=== PATIENT | male | born 1975 | race Caucasian/White ===

== ENCOUNTER 2016-05-09 10:26 | Inpatient (IN) | payer SELFPAY ==
[~2016-05-09] VITALS: Ht 175.3 cm; Wt 73.8 kg
[2016-05-09] MEDS ORDERED: SODIUM CHLORIDE 0.9% 1000ML 2,000 ML IV STA (10:42)
[2016-05-09] MEDS ORDERED: ONDANSETRON INJ 2 MG/ML 2 ML VIAL IV STA (10:42)
[2016-05-09] MEDS ORDERED: FAMOTIDINE 20MG/102 ML D5W IV STA (10:54)
[2016-05-09] MEDS ORDERED: PANTOprazole INJ 40 MG in SYRINGE 0 ML IV ONE (11:00)
[2016-05-09 11:01] LABS: BASO % 0.2 %; BASO ABS # 0.02 K/uL (0-0.2); COMPLETE YES; EOS % 0.9 %; IG% 0.2 %; LYMPH % 17.6 %; LYMPH ABS # 1.53 K/uL (1.2-3.4); MEAN CORPUSCULAR HEMOGLOBIN 28.6 pg (25-34); MEAN CORPUSCULAR HGB CONC 32.9 g/dl (32-36); MEAN PLATELET VOLUME 9.8 fL (7.4-10.4); MONO % 4.4 %; NEUT % 76.7 %; PLATELET COUNT 357 K/uL (130-400); RED BLOOD COUNT 4.37 M/uL (4.7-6.1); WHITE BLOOD COUNT 8.69 K/uL (4.8-10.8)
[2016-05-09 11:14] LABS: PARTIAL THROMBOPLASTIN RATIO 0.9; PROTHROMBIN TIME (PATIENT) 10.9 SECONDS (9.0-12.0)
--- NOTE | 2016-05-09 11:20 | EMERGENCY ROOM VISIT NOTE ---
History Report prepared by Abiola: Donis Silverio Under the Supervision of: Dr. Randy Cintron D.O. First contact with patient: 10:36 Chief Complaint: VOMITING Stated Complaint: CAN'T HOLD ANYTHING IN STOMACH DX: DIABETIC Nursing Triage Summary: pt reports is diabetic and vomiting since saturday feels like dehydrated. has bad acid reflux. bilat lower back pain. History of Present Illness The patient is a 40 year old male who presents to the Emergency Room with complaints of intermittent nausea and vomiting starting 5 days ago. He has a history of diabetes. His blood sugar level was 450 last night. He has been taking his aunt's insulin. He also complains of a burning pain in mid-chest. He denies any pain radiation. He also complains of some back pain. He has a history of similar pain. The patient denies any recent falls, abdominal pain, lower extremity swelling, or any other complaints. He denies any recent drug or alcohol use. Source of History: patient Onset: 5 days ago Position: other (global) Quality: other (nausea and vomiting) Timing: intermittent Associated Symptoms: + back pain, + chest pain, No abdominal pain Review of Systems See HPI for pertinent positives & negatives. A total of 10 systems reviewed and were otherwise negative. Past Medical & Surgical Medical Problems: (1) Diabetes (2) Uncontrolled diabetes mellitus Family History Patient reports no known family medical history. Social History Smoking Status: Current Every Day Smoker Marital Status: single Occupation Status: employed Current/Historical Medications Scheduled Insulin Glargine (Lantus), Unknown Dose SC QPM Miscellaneous Medications Insulin Aspart (Novolog Flexpen), Unknown Dose Allergies Coded Allergies: No Known Allergies (Unverified , 05/09/16) Physical Exam Vital Signs Date Time Temp Pulse Resp B/P Pulse Ox O2 Delivery O2 Flow Rate FiO2 05/09/16 13:53 94 05/09/16 13:04 97 23 95 05/09/16 12:58 131/81 05/09/16 12:34 87 15 97 05/09/16 12:28 160/103 05/09/16 12:04 82 16 98 05/09/16 11:59 164/77 05/09/16 11:56 122 18 97 05/09/16 11:52 168/105 05/09/16 11:26 87 15 05/09/16 11:24 90 05/09/16 10:29 36.8 95 18 113/85 99 Room Air Physical Exam GENERAL: Patient is awake, alert, somewhat anxious appearing and uncomfortable. EYES: The conjunctivae are clear. The pupils are round and reactive. EARS, NOSE, MOUTH AND THROAT: The nose is without any evidence of any deformity. Mucous membranes are dry tongue is midline NECK: The neck is nontender and supple. RESPIRATORY: Normal respiratory effort is noted there is no evidence of wheezing rhonchi or rales CARDIOVASCULAR: Regular rate and rhythm noted there no murmurs rubs or gallops normal S1 normal S2 GASTROINTESTINAL: The abdomen is soft but mildly distended. Bowel sounds are present in all quadrants. Abdomen is nontender. There is no specific guarding or rigidity. BACK: Bilateral lower CVA tenderness to palpation, range of motion appeared intact, no midline tenderness noted. MUSCULOSKELETAL/EXTREMITIES: There is no evidence of gross deformity full range of motion is noted in the hips and shoulders SKIN: There is no obvious evidence of any rash. There are no petechiae, pallor or cyanosis noted. NEUROLOGIC: Patient is awake alert and oriented x3 strength is symmetric patellar reflexes are 2+ bilaterally Medical Decision & Procedures ER Provider Diagnostic Interpretation: X ray results and stated below per my interpretation and radiology interpretation. CT results per my review and radiologist interpretation: CT OF THE ABDOMEN AND PELVIS WITHOUT CONTRAST CLINICAL HISTORY: Bilateral flank pain and vomiting. COMPARISON STUDY: KUB performed earlier today. TECHNIQUE: Axial images of the abdomen and pelvis were obtained without IV contrast. Images were reviewed in the axial, sagittal, and coronal planes. FINDINGS: Visualized portions of the lower chest demonstrate a small hiatal hernia with wall thickening of the distal esophagus. No renal, ureteral or bladder calculi are present. There is no hydronephrosis or hydroureter. Mild bladder wall thickening is noted. Evaluation of the remainder of the abdomen and pelvis is suboptimal on this unenhanced exam. A calcification within the medial segment of the left hepatic lobe is noted. There is no biliary or pancreatic ductal dilatation. Unenhanced images of the spleen, adrenal glands and pancreas are unremarkable. There is mild pancreatic glandular atrophy. There is a splenule. There is no evidence for a bowel obstruction. The appendix is normal. There is no free fluid or lymphadenopathy. No suspicious skeletal lesions are identified. Slight loss of height of the superior endplate of L1 is likely chronic. IMPRESSION: 1. No urinary calculi or hydronephrosis. 2. Normal appendix. 3. Mild bladder wall thickening. This could be correlated with urinalysis to exclude cystitis. 4. Small hiatal hernia and possible mild wall thickening of the distal esophagus. 5. No bowel obstruction. Electronically signed by: Cortez Lindquist M.D. 05/09/2016 12:01 PM Dictated Date/Time: 05/09/2016 11:53 AM CHEST ONE VIEW PORTABLE CLINICAL HISTORY: Abdominal pain. COMPARISON STUDY: No previous studies for comparison. FINDINGS: No lucency is identified under the hemidiaphragms to suggest pneumoperitoneum on this exam. Lung volumes are normal. A 1.8 cm nodular opacity projects over the right lower lung. Otherwise, lungs are clear. There is no evidence of pulmonary edema. Cardiac size is normal. Mediastinal contours are normal. IMPRESSION: 1.8 cm nodular opacity projecting over the right lower lung. This could reflect minimal airspace disease, a pulmonary nodule or artifact. Follow-up PA and lateral chest radiographs in one month are recommended. Electronically signed by: Cortez Lindquist M.D. 05/09/2016 11:28 AM Dictated Date/Time: 05/09/2016 11:26 AM KUB CLINICAL HISTORY: Generalized abdominal pain. FINDINGS: AP, portable, supine abdominal radiograph is obtained. No prior studies are available for comparison at the time of dictation. There is a nonobstructed abdominal bowel gas pattern. No calcifications project over either kidney. There is a 7 mm linear calcification identified in the right hemipelvis. The bony structures appear intact. IMPRESSION: 1. Nonobstructed abdominal bowel gas pattern. 2. There is a 7 mm linear calculus projecting over the right hemipelvis. This is indeterminant, and could be related to a vascular structure or could potentially represent a distal ureteral stone. Correlate clinically for a history of right flank pain and hematuria. Consider ultrasound of the kidneys to assess for hydronephrosis. 3. No calcifications project over either kidney. Electronically signed by: Durga Barnes M.D. 05/09/2016 11:28 AM Dictated Date/Time: 05/09/2016 11:26 AM Laboratory Results 05/09/16 10:50 Red Blood Count 4.37, Mean Corpuscular Volume 87.0, Mean Corpuscular Hemoglobin 28.6, Mean Corpuscular Hemoglobin Concent 32.9, Mean Platelet Volume 9.8, Neutrophils (%) (Auto) 76.7, Lymphocytes (%) (Auto) 17.6, Monocytes (%) (Auto) 4.4, Eosinophils (%) (Auto) 0.9, Basophils (%) (Auto) 0.2, Neutrophils # (Auto) 6.66, Lymphocytes # (Auto) 1.53, Monocytes # (Auto) 0.38, Eosinophils # (Auto) 0.08, Basophils # (Auto) 0.02 05/09/16 10:50 Test 05/09/16 10:50 05/09/16 10:52 05/09/16 11:10 05/09/16 12:00 White Blood Count 8.69 K/uL (4.8-10.8) Red Blood Count 4.37 M/uL (4.7-6.1) Hemoglobin 12.5 g/dL (14.0-18.0) Hematocrit 38.0 % (42-52) Mean Corpuscular Volume 87.0 fL (80-100) Mean Corpuscular Hemoglobin 28.6 pg (25-34) Mean Corpuscular Hemoglobin Concent 32.9 g/dl (32-36) Platelet Count 357 K/uL (130-400) Mean Platelet Volume 9.8 fL (7.4-10.4) Neutrophils (%) (Auto) 76.7 % Lymphocytes (%) (Auto) 17.6 % Monocytes (%) (Auto) 4.4 % Eosinophils (%) (Auto) 0.9 % Basophils (%) (Auto) 0.2 % Neutrophils # (Auto) 6.66 K/uL (1.4-6.5) Lymphocytes # (Auto) 1.53 K/uL (1.2-3.4) Monocytes # (Auto) 0.38 K/uL (0.11-0.59) Eosinophils # (Auto) 0.08 K/uL (0-0.5) Basophils # (Auto) 0.02 K/uL (0-0.2) RDW Standard Deviation 40.9 fL (36.4-46.3) RDW Coefficient of Variation 12.8 % (11.5-14.5) Immature Granulocyte % (Auto) 0.2 % Immature Granulocyte # (Auto) 0.02 K/uL (0.00-0.02) Prothrombin Time 10.9 SECONDS (9.0-12.0) Prothromb Time International Ratio 1.0 (0.9-1.1) Activated Partial Thromboplast Time 24.0 SECONDS (21.0-31.0) Partial Thromboplastin Ratio 0.9 Anion Gap 10.0 mmol/L (3-11) Est Creatinine Clear Calc Drug Dose 60.8 ml/min Estimated GFR () 61.1 Estimated GFR (Non- 52.7 BUN/Creatinine Ratio 16.4 (10-20) Estimated Average Glucose 214 mg/dl Hemoglobin A1c 9.1 % (4.5-5.6) Calcium Level 9.7 mg/dl (8.5-10.1) Total Bilirubin 0.6 mg/dl (0.2-1) Direct Bilirubin 0.1 mg/dl (0-0.2) Aspartate Amino Transf (AST/SGOT) 31 U/L (15-37) Alanine Aminotransferase (ALT/SGPT) 24 U/L (12-78) Alkaline Phosphatase 55 U/L (45-117) Total Creatine Kinase 613 U/L (39-308) Creatine Kinase MB 5.8 ng/ml (0.5-3.6) Creatine Kinase MB Ratio 0.9 (0-3.0) Troponin I < 0.015 ng/ml (0-0.045) Total Protein 8.2 gm/dl (6.4-8.2) Albumin 3.9 gm/dl (3.4-5.0) Amylase Level 59 U/L (25-115) Lipase 129 U/L (73-393) Beta-Hydroxybutyric Acid 6.85 mg/dL (0.2-2.81) Bedside Lactic Acid Venous 2.00 mmol/L (0.90-1.70) Venous Blood pH 7.46 (7.36-7.41) Venous Blood Partial Pressure CO2 51 mmHg (38.0-50.0) Venous Blood Partial Pressure O2 50 mmHg Venous Blood HCO3 35 mmol/L Venous Blood Oxygen Saturation 84.3 % Venous Blood Base Excess 10.0 mmol/L Urine Color YELLOW Urine Appearance CLEAR (CLEAR) Urine pH 7.5 (4.5-7.5) Urine Specific Dennison 1.018 (1.000-1.030) Urine Protein 2+ (NEG) Urine Glucose (UA) 2+ (NEG) Urine Ketones TRACE (NEG) Urine Occult Blood NEG (NEG) Urine Nitrite NEG (NEG) Urine Bilirubin NEG (NEG) Urine Urobilinogen NEG (NEG) Urine Leukocyte Esterase NEG (NEG) Urine WBC (Auto) 1-5 /hpf (0-5) Urine RBC (Auto) 0-4 /hpf (0-4) Urine Hyaline Casts (Auto) 5-10 /lpf (0-5) Urine Epithelial Cells (Auto) 10-20 /lpf (0-5) Urine Bacteria (Auto) NEG (NEG) Laboratory results per my review. Medications Administered Medications (Trade) Dose Ordered Sig/Jeronimo Route Start Time Stop Time Status Last Admin Dose Admin Ondansetron HCl 4 mg 4 mg NOW STAT IV 05/09/16 10:42 05/09/16 10:44 DC 05/09/16 11:13 4 MG Sodium Chloride 2,000 ml @ 999 mls/hr Q2H1M STAT IV 05/09/16 10:42 05/09/16 12:42 DC 05/09/16 11:12 999 MLS/HR Pantoprazole Sodium/Syringe (Protonix Inj/ Syringe) 10 ml @ 5 mls/min NOW ONCE IV 05/09/16 11:00 05/09/16 11:01 DC 05/09/16 11:55 5 MLS/MIN Famotidine (Pepcid 20mg/100 ml) 20 mg ONE STAT IV 05/09/16 10:54 05/09/16 10:56 DC 05/09/16 11:14 20 MG Levofloxacin (Levaquin / D5W) 750 mg NOW STAT IV 05/09/16 13:30 05/09/16 13:31 DC 05/09/16 13:53 750 MG Acetaminophen (Tylenol Tab) 650 mg Q4H PRN PO 05/09/16 14:45 06/08/16 14:44 05/09/16 17:58 650 MG Ondansetron HCl (Zofran Inj) 4 mg Q6H PRN IV 05/09/16 14:45 06/08/16 14:44 05/09/16 15:33 4 MG ECG Indication: chest pain Rate (beats per minute): 87 Rhythm: normal sinus Findings: no ectopy, other (No acute ST segment abnormalities) Comparison ECG Date: no prior available ED Course 1036: The patient was evaluated in room C04. A complete history and physical examination were performed. 1042: Sodium Chloride 2000 ml @ 999 mls/hr IV, Zofran Inj 4 mg IV 1054: Famotidine 20 mg IV 1100: Pantoprazole Sodium 40 mg/Syringe 10 ml @ 5 mls/min IV 1330: Levofloxacin 750 mg IV 1351: Upon reevaluation, the patient is resting comfortably. I discussed results and treatment plan with him. He verbalizes agreement and understanding. [facility] The patient will be evaluated for further management and care. Medical Decision Prior records/ancillary studies reviewed. Triage Nursing notes reviewed. Additional history obtained from the family. Differential diagnosis: Etiologies such as gastroenteritis, food borne illness, infections, appendicitis , diverticulitis, inflammatory bowel disease, obstruction, GI bleed, biliary pathology, as well as others were entertained. The patient is a 40-year-old male who presented to the emergency apartment for an evaluation of nausea and vomiting. The patient is a history of diabetes and is not compliant with medications. He was found have hyperglycemia. He was treated with IV fluids IV antiemetics as well as proton pump inhibitors and H2 blockers. The patient was also treated with IV antibiotics for presumed pneumonia noted on chest x-ray. I discussed the patient's laboratory and radiographic studies with him. He was not feeling much better and was still unable to tolerate liquids. This reason I discussed his case with the on-call [facility] group. They have agreed to evaluate the patient in the emergency department for further management and disposition. Consults Time Called: 1350 Consulting Physician: [facility] Returned Call: [address] [facility]. Impression Primary Impression: Dehydration Additional Impressions: Intractable vomiting Pneumonia Hyperglycemia Scribe Attestation The scribe's documentation has been prepared under my direction and personally reviewed by me in its entirety. I confirm that the note above accurately reflects all work, treatment, procedures, and medical decision making performed by me. Departure Information Dispostion Being Evaluated By Hospitalist Referrals No Doctor, Assigned (PCP) Patient Instructions My [facility] Problem Qualifiers
[2016-05-09] MEDS ORDERED: NVLGI/PEN (11:22)
[2016-05-09] MEDS ORDERED: INSDGI SC (11:22)
[2016-05-09 11:25] LABS: VEN BLD GAS O2 SATURATION 84.3 %
[2016-05-09 11:29] LABS: ALT/SGPT 24 U/L (12-78); AST/SGOT 31 U/L (15-37); BLOOD UREA NITROGEN 26 mg/dl (7-18); BUN/CREATININE RATIO 16.4 (10-20); CALCIUM 9.7 mg/dl (8.5-10.1); CARBON DIOXIDE 33 mmol/L (21-32); CHLORIDE 97 mmol/L (98-107); GLUCOSE 261 mg/dl (70-99); POTASSIUM 3.9 mmol/L (3.5-5.1); SODIUM 140 mmol/L (136-145)
--- NOTE | 2016-05-09 11:29 | DIAGNOSTIC IMAGING REPORT ---
CHEST ONE VIEW PORTABLE CLINICAL HISTORY: Abdominal pain. COMPARISON STUDY: No previous studies for comparison. FINDINGS: No lucency is identified under the hemidiaphragms to suggest pneumoperitoneum on this exam. Lung volumes are normal. A 1.8 cm nodular opacity projects over the right lower lung. Otherwise, lungs are clear. There is no evidence of pulmonary edema. Cardiac size is normal. Mediastinal contours are normal. IMPRESSION: 1.8 cm nodular opacity projecting over the right lower lung. This could reflect minimal airspace disease, a pulmonary nodule or artifact. Follow-up PA and lateral chest radiographs in one month are recommended. Electronically signed by: Cortez Lindquist M.D. 05/09/2016 11:28 AM Dictated Date/Time: 05/09/2016 11:26 AM
--- NOTE | 2016-05-09 11:30 | DIAGNOSTIC IMAGING REPORT ---
KUB CLINICAL HISTORY: Generalized abdominal pain. FINDINGS: AP, portable, supine abdominal radiograph is obtained. No prior studies are available for comparison at the time of dictation. There is a nonobstructed abdominal bowel gas pattern. No calcifications project over either kidney. There is a 7 mm linear calcification identified in the right hemipelvis. The bony structures appear intact. IMPRESSION: 1. Nonobstructed abdominal bowel gas pattern. 2. There is a 7 mm linear calculus projecting over the right hemipelvis. This is indeterminant, and could be related to a vascular structure or could potentially represent a distal ureteral stone. Correlate clinically for a history of right flank pain and hematuria. Consider ultrasound of the kidneys to assess for hydronephrosis. 3. No calcifications project over either kidney. Electronically signed by: Durga Barnes M.D. 05/09/2016 11:28 AM Dictated Date/Time: 05/09/2016 11:26 AM
[2016-05-09 11:35] LABS: ALKALINE PHOSPHATASE 55 U/L (45-117); AMYLASE 59 U/L (25-115); CKMB/CK RATIO 0.9 (0-3.0)
--- NOTE | 2016-05-09 12:02 | DIAGNOSTIC IMAGING REPORT ---
CT OF THE ABDOMEN AND PELVIS WITHOUT CONTRAST CLINICAL HISTORY: Bilateral flank pain and vomiting. COMPARISON STUDY: KUB performed earlier today. TECHNIQUE: Axial images of the abdomen and pelvis were obtained without IV contrast. Images were reviewed in the axial, sagittal, and coronal planes. FINDINGS: Visualized portions of the lower chest demonstrate a small hiatal hernia with wall thickening of the distal esophagus. No renal, ureteral or bladder calculi are present. There is no hydronephrosis or hydroureter. Mild bladder wall thickening is noted. Evaluation of the remainder of the abdomen and pelvis is suboptimal on this unenhanced exam. A calcification within the medial segment of the left hepatic lobe is noted. There is no biliary or pancreatic ductal dilatation. Unenhanced images of the spleen, adrenal glands and pancreas are unremarkable. There is mild pancreatic glandular atrophy. There is a splenule. There is no evidence for a bowel obstruction. The appendix is normal. There is no free fluid or lymphadenopathy. No suspicious skeletal lesions are identified. Slight loss of height of the superior endplate of L1 is likely chronic. IMPRESSION: 1. No urinary calculi or hydronephrosis. 2. Normal appendix. 3. Mild bladder wall thickening. This could be correlated with urinalysis to exclude cystitis. 4. Small hiatal hernia and possible mild wall thickening of the distal esophagus. 5. No bowel obstruction. Electronically signed by: Cortez Lindquist M.D. 05/09/2016 12:01 PM Dictated Date/Time: 05/09/2016 11:53 AM
[2016-05-09 12:14] LABS: ESTIMATED AVERAGE GLUCOSE 214 mg/dl; HA1C FLAG Normal (Normal)
[2016-05-09 12:19] LABS: URINE APPEARANCE CLEAR (CLEAR); URINE BILIRUBIN NEG (NEG); URINE COLOR YELLOW; URINE NITRITE NEG (NEG); URINE PH 7.5 (4.5-7.5); URINE SPECIFIC GRAVITY 1.018 (1.000-1.030); UROBILINOGEN NEG (NEG)
[2016-05-09 12:28] LABS: MANUAL MICROSCOPIC REQUIRED? NO; REVIEW REQ? NO; SULFASALICYLIC ACID POS (NEG)
[2016-05-09] MEDS ORDERED: LEVAQUIN 750MG / 150ML D5W IV STA (13:30)
[2016-05-09] MEDS ORDERED: ACETAMINOPHEN 325 MG TAB PO PRN (14:45)
[2016-05-09] MEDS ORDERED: INSULIN GLARGINE PER UNIT 10 UNITS in SYRINGE 0 ML SC SCH (14:45)
[2016-05-09] MEDS ORDERED: ALUMINUM/MAGNESIUM/SIMETH (MAALOX MAX) 30 ML UDC PO PRN (14:45)
[2016-05-09] MEDS ORDERED: MAGNESIUM HYDROXIDE SUSP 30 ML UDC PO PRN (14:45)
[2016-05-09] MEDS ORDERED: POLYETHYLENE (MIRALAX) 17 GM PACK PO PRN (14:45)
[2016-05-09] MEDS: ONDANSETRON INJ 2 MG/ML 2 ML VIAL IV PRN (15:33)
--- NOTE | 2016-05-09 15:46 | HISTORY & PHYSICAL EXAMINATION ---
DATE OF ADMISSION: 05/09/2016 CHIEF COMPLAINT: Increased glucose, nausea. HISTORY OF PRESENT ILLNESS: This is a 40-year-old male comes to Emergency Room complaining of intermittent nausea and vomiting started 5 days ago. He also had associated cough. His blood sugar was 450 last night and he has not been taking his insulin because he could not afford it due to insurance issues. Also complains of burning pain in the mid chest. He denies any radiation of his pain. He denies any recent falls, abdominal pain, lower extremity swelling or any other complaints. Does not use drugs or alcohol. According to him 6 years ago he was diagnosed with type 1 diabetes and he received IV insulin in hospital in [place]. 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 In the last 6 years he has been taking sliding scale NovoLog that starts at 200 mg per deciliter and goes by 2 units above this level starting with 4 units by each increment of 50 mg per deciliter. He takes Lantus 10-18 units at bedtime and uses his insulin. He checks his sugars according to him 3 times a day but he was only able to provide me glucose reading for lunch and dinner. Lunch is about 300-400 and for dinner 200-300. He could not afford any insulin due to insurance issues. He did say that 3-4 weeks ago he had insulin and was in the 40s and 50s because he took insulin and did not each much. He did not see director immunology, eye doctor, sinter machine operator or dentist. He does not know his last hemoglobin A1c. He eats 3 meals a day. REVIEW OF SYSTEMS: Negative except as above. Ten out of 14 systems were reviewed. PAST MEDICAL HISTORY: Significant for type 1 diabetes, however it is not confirmed. SOCIAL HISTORY: Smokes half a pack a day, does not drink, single, employed. ALLERGIES: He has no known allergies. CURRENT MEDICATIONS: He also takes NovoLog sliding scale and Lantus 10-18 units at bedtime. PHYSICAL EXAMINATION: VITAL SIGNS: Temperature 36.8, pulse 95, respirations 18, blood pressure 113/85, pulse ox 99 on room air. GENERAL: Not in acute distress. HEAD, EYES, EARS, NOSE, AND THROAT: Normocephalic, atraumatic. PERRLA, EOMI. Mouth moist, no lesions. NECK: No JVD. Trachea midline. Thyroid is not enlarged. LUNGS: Normal respiratory effort. No wheezing. HEART: S1, S2, RRR. GASTROINTESTINAL: Abdomen soft, but mildly distended. Bowel sounds present in all quadrants. Abdomen is nontender. There is no specific guarding or rigidity. BACK: Bilateral CVA tenderness to palpation. MUSCULOSKELETAL: Extremities no clubbing, cyanosis, edema. SKIN: No rash. No jaundice. NEUROLOGICAL: Alert, oriented x3. Motor sensory normal. EK beats per minute, normal sinus rhythm, no ST-T wave changes. LABORATORY DATA: White count of 8.6, hemoglobin of 12.5, and platelets of 357. Blood gas pH of 7.46, CO2 of 51 and bicarbonate of 35. His hemoglobin A1c of 9.1. Sodium 140, potassium 3.9, chloride 97, carbon dioxide 33, BUN of 26, creatinine 1.6 and glucose of 261. Total creatine kinase is 613, CK-MB of 5.8. Troponin less than 0.015, but hydroxybutyric acid is 6.85. Urinalysis trace ketones, 5-10 casts and 10-20 epithelial cells. INR 1.0. PTT 24. Imaging study of abdomen and pelvis CT no urinary calculus or hydronephrosis, normal appendix, mild bladder wall thickening correlated with urinalysis to exclude cystitis, small hiatal hernia and possible mild wall thickening of the distal esophagus. No bowel obstruction. Chest x-ray 1.8 cm nodular opacity projecting over the right lower lung. This could reflect minimal airspace disease, pulmonary nodule or artifact. KUB nonobstructed abdominal bowel gas patten, 7 mm renal calculus projecting over the right hemipelvis. This is indeterminate, could be related to stricture, could potentially represent a distal ureter stone. No calcifications project over either kidney. CAT scan did not show any urinary calculi or hydronephrosis. ASSESSMENT AND PLAN: This is a 40-year-old male who comes with uncontrolled hyperglycemia. 1. Uncontrolled hyperglycemia. Doubt type 1 diabetes. Could be type 2 diabetes or JEET, however further outpatient testing is required. His hemoglobin A1c is 9.1. He requires insulin injection. We will give him 6-8 units of regular insulin subQ, followed by 10 units of Lantus twice a day. The patient does not have insurance and therefore he will be a candidate for NovoLog 70/30 twice a day. Dose will be determined according to response to current dose of insulin. This episode could have been precipitated by gastroenteritis or mild bronchial pneumonia or bronchitis. He also mentioned of mild bladder wall thickening could represent cystitis on his CAT scan. Recheck BMP and beta hydroxybutyric acid at 7:00 p.m. tonight. Consult elementary educator. 2. Acute renal failure likely secondary to dehydration in the setting of possible cystitis or gastroenteritis. We will start patient on normal saline with 20 mEq of potassium and Levaquin 750 daily. 3. Nicotine addiction. Start nicotine 14 mg patch. 4. Dehydration. Continue IV fluids. 5. Deep venous thrombosis and gastrointestinal prophylaxis. THE PATIENT IS A FULL CODE. Time spent doing this admission 50 minutes. JABARID
[2016-05-09 16:08] VITALS: O2SAT 99; BMI 24.0
[2016-05-09] MEDS ORDERED: INSULIN HUMAN REGULAR SC ONE (16:45)
[2016-05-09] MEDS ORDERED: NovoLIN-R INSULIN PER UNIT CHARGE SQ ONE (17:00)
[2016-05-09 17:30] VITALS: BP 147/85; PULSE 91; TEMP 36.8; O2SAT 95
[2016-05-09] MEDS: NSS + 20MEQ KCL 1000ML 1,000 ML IV SCH (17:58)
[2016-05-09] MEDS ORDERED: TRAMADOL HCL 50 MG TAB PO STA (19:43)
[2016-05-09 19:46] LABS: BUN/CREATININE RATIO 16.2 (10-20); CALCIUM 8.4 mg/dl (8.5-10.1); CREATININE 1.2 mg/dl (0.60-1.40); POTASSIUM 3.8 mmol/L (3.5-5.1)
[2016-05-09 19:47] LABS: BETA-HYDROXYBUTYRATE 1.07 mg/dL (0.2-2.81)
[2016-05-09] MEDS ORDERED: TRAMADOL HCL 50 MG TAB ONE (19:47)
[2016-05-09] MEDS: INSULIN ASPART 100 UNITS/ML 3 ML PEN SC SCH (20:40)
[2016-05-09] MEDS: INSULIN GLARGINE SOLOSTAR 100 UNITS/ML 3 ML PEN SC SCH (20:41)
[2016-05-09] MEDS ORDERED: MoRPHine SULFATE 4 MG/ML 1 ML CARP\\VIAL IV STA (22:21)
[2016-05-09] MEDS: DICLOFENAC SOD 1% GEL 100 GM TUBE EXT SCH (23:38)
[2016-05-10 00:53] VITALS: BP 101/66; PULSE 82; TEMP 36.6; O2SAT 97
[2016-05-10] MEDS: NSS + 20MEQ KCL 1000ML 1,000 ML IV SCH ×2 (03:08→13:53)
[2016-05-10] MEDS: INSULIN ASPART 100 UNITS/ML 3 ML PEN SC SCH (06:30)
[2016-05-10 07:07] VITALS: BP 108/70; PULSE 73; TEMP 36.6; O2SAT 96
[2016-05-10 07:52] LABS: BASO % 0.3 %; BASO ABS # 0.02 K/uL (0-0.2); COMPLETE YES; EOS % 1.9 %; HEMATOCRIT 33.9 % (42-52); IG% 0.2 %; LYMPH % 30.5 %; LYMPH ABS # 1.96 K/uL (1.2-3.4); MEAN CELL VOLUME 87.8 fL (80-100); MEAN CORPUSCULAR HEMOGLOBIN 28.2 pg (25-34); MEAN CORPUSCULAR HGB CONC 32.2 g/dl (32-36); MEAN PLATELET VOLUME 10.1 fL (7.4-10.4); NEUT % 60.1 %; PLATELET COUNT 312 K/uL (130-400); RED BLOOD COUNT 3.86 M/uL (4.7-6.1); WHITE BLOOD COUNT 6.43 K/uL (4.8-10.8)
[2016-05-10 08:00] VITALS: O2SAT 96
[2016-05-10] MEDS: INSULIN GLARGINE SOLOSTAR 100 UNITS/ML 3 ML PEN SC SCH (08:00)
[2016-05-10] MEDS ORDERED: NICOTINE 14 MG/24 HR TDSY TD SCH (08:00)
[2016-05-10 08:22] LABS: BUN/CREATININE RATIO 14.4 (10-20); CALCIUM 8.2 mg/dl (8.5-10.1); CREATININE 1.1 mg/dl (0.60-1.40); POTASSIUM 3.5 mmol/L (3.5-5.1)
[2016-05-10] MEDS ORDERED: DEXTROSE 50% 50 ML SYR ONE (08:24)
[2016-05-10] MEDS ORDERED: DEXTROSE 50% 50 ML SYR IV PRN ×2 (08:30)
[2016-05-10] MEDS ORDERED: GLUCOSE 10 TABS/TUBE PO PRN (08:30)
[2016-05-10] MEDS ORDERED: GLUCAGON FOR INJ 1 MG VIAL SQ PRN (08:30)
[2016-05-10] MEDS ORDERED: GLUCOSE 40% GEL 15 GM TUBE PO PRN (08:30)
[2016-05-10] MEDS: ONDANSETRON INJ 2 MG/ML 2 ML VIAL IV PRN (08:33)
[2016-05-10] MEDS: DICLOFENAC SOD 1% GEL 100 GM TUBE EXT SCH (08:34)
[2016-05-10] MEDS ORDERED: PHARMACY GLYCEMIC MGMT CONSULT PRN (08:45)
--- NOTE | 2016-05-10 10:58 | Pharmacy Progress Note ---
Glycemic Control Intl Consult Date of Service May 10, 2016. Scope Glycemic Pharmacist consulted by Sheri Clay PA-C on 05/10/16 for glycemic control and to write orders per [facility] inpatient glycemic control protocol Objective Weight (Kilograms): 73.800 Accuchecks BSG (last 24hrs): Test 05/09/16 10:50 05/09/16 10:55 05/09/16 13:01 05/09/16 16:47 Random Glucose 261 mg/dl (70-99) Bedside Glucose 248 mg/dl (70-99) 228 mg/dl (70-99) 186 mg/dl (70-99) Test 05/09/16 17:15 05/09/16 19:10 05/09/16 20:38 05/10/16 06:55 Bedside Glucose 202 mg/dl (70-99) 113 mg/dl (70-99) Random Glucose 147 mg/dl (70-99) 61 mg/dl (70-99) Test 05/10/16 07:41 05/10/16 08:05 05/10/16 08:47 Bedside Glucose 67 mg/dl (70-99) 60 mg/dl (70-99) 236 mg/dl (70-99) Laboratory Data (last 24hrs) Test 05/09/16 10:50 05/09/16 19:10 05/10/16 06:55 Anion Gap 10.0 mmol/L 7.0 mmol/L 9.0 mmol/L BUN/Creatinine Ratio 16.4 16.2 14.4 Blood Urea Nitrogen 26 mg/dl 19 mg/dl 16 mg/dl Creatinine 1.60 mg/dl 1.20 mg/dl 1.10 mg/dl Hemoglobin A1c 9.1 % Potassium Level 3.9 mmol/L 3.8 mmol/L 3.5 mmol/L Sodium Level 140 mmol/L 141 mmol/L 141 mmol/L White Blood Count 8.69 K/uL 6.43 K/uL Red Blood Count 4.37 M/uL 3.86 M/uL Hemoglobin 12.5 g/dL 10.9 g/dL Hematocrit 38.0 % 33.9 % Mean Corpuscular Volume 87.0 fL 87.8 fL Mean Corpuscular Hemoglobin 28.6 pg 28.2 pg Mean Corpuscular Hemoglobin Concent 32.9 g/dl 32.2 g/dl Platelet Count 357 K/uL 312 K/uL Mean Platelet Volume 9.8 fL 10.1 fL Neutrophils (%) (Auto) 76.7 % 60.1 % Lymphocytes (%) (Auto) 17.6 % 30.5 % Monocytes (%) (Auto) 4.4 % 7.0 % Eosinophils (%) (Auto) 0.9 % 1.9 % Basophils (%) (Auto) 0.2 % 0.3 % Neutrophils # (Auto) 6.66 K/uL 3.87 K/uL Lymphocytes # (Auto) 1.53 K/uL 1.96 K/uL Monocytes # (Auto) 0.38 K/uL 0.45 K/uL Eosinophils # (Auto) 0.08 K/uL 0.12 K/uL Basophils # (Auto) 0.02 K/uL 0.02 K/uL HbA1c Test 05/09/16 10:50 Hemoglobin A1c 9.1 % (4.5-5.6) H Recent Pertinent Medications Outpatient Anti-diabetic Regimen: * When patient is able to take his insulin, this is his regimen, although patient reports hypoglycemia when on this regimen: * Lantus 10-18 units SQ HS * Novolog SS, for BSG > 200mg/dL - 4 units; >250mg/dL - 6 units; > 300mg/dL - 8 units, >350mg/dL - 10 units * A1c = 9.1 % 05/10/16 The patient is currently receiving: * Basal insulin: Lantus 10 units every 12 hours - pt had one dose last night * Novolin R: 6 units SQ x 2 dose last night Risk Factors for Insulin Resistance: * Infection: possible pneumonia - IV Levaquin * Diet: Clears Assessment & Plan ASSESSMENT: * 40 yo admitted for nausea/emesis, hyperglycemia, possible pneumonia. * Type 1 vs type 2 vs JEET diabetic, x 6 years. Non-compliant as outpatient, uninsured. Patient reports hypoglycemia with insulin doses reported above. Patient also experienced hypoglycemia this morning with a total of 16 units of insulin last night. * BSG 60mg/dL - treated with dextrose IV - repeat 236mg/dL. * Patient already given Lantus and Novolog pens for admission, so I will continue to use these, patient will need dosing regimen for Novolin 70/30 as outpatient to give patient a more affordable option for compliance. * I will hold patient's Lantus until tomorrow morning and reduce dose. * Accuchecks overnight while titrating insulin doses. * Will start with a pretty loose CF and CR and titrate as we see how patient responds to carb intake. * ADA & AACE recommend a goal blood sugar range 140-180 mg/dl for the majority of critically ill & non-critically ill patients. However, more stringent targets may be selected in individual cases. For patient's age and DM history and hypoglycemic episodes, will start with range of 120-160mg/dL. PLAN FOR INPATIENT GLYCEMIC CONTROL: * Basal insulin with LANTUS 6 units SQ daily starting tomorrow morning * HOLD for BSG < 120mg/dL * Correctional Insulin with NOVOLOG per scale ACHS or Q6hrs while NPO and at 00: 00 and 04:00 overnight * Goal Range: Low 120 mg/dL - High 160 mg/dL * Correction Factor: 40 mg/dL/unit * Nutritional / Prandial insulin per carb ratio of 1 unit per 20 grams CHO consumed DISCHARGE RECOMMENDATIONS: * Relion ([employer] brand) Novolin 70/30 - dosing recommendations after patient has had 24-48 hours of insulin as inpatient to determine needs. * Please note that the plan above was derived based on current level of insulin resistance and hospital stress. These recommendations are appropriate for inpatient admission only. Plan of care upon discharge will need to be reassessed to avoid potential outpatient hypo/hyperglycemia. Thank you.
[2016-05-10] MEDS ORDERED: TRAMADOL HCL 50 MG TAB PO PRN (11:00)
--- NOTE | 2016-05-10 11:34 | Hospitalist Progress Note ---
Hospitalist Progress Note Date of Service May 10, 2016. Subjective Pt evaluation today including: conversation w/ patient, physical exam, chart review, lab review, review of studies, review of inpatient medication list Patient reports feeling better this morning. He was able to keep orange juice down. He is also sipping water. He is ready to eat and is hungry. Denies any abdominal pain. Denies any chest pain or shortness of breath. complaining of a mild cough. No fever or chills. Additional Comments: 6 system review negative. Please see pertinent positives in the history of present illness section. Objective Vital Signs Date Time Temp Pulse Resp B/P Pulse Ox O2 Delivery O2 Flow Rate FiO2 05/10/16 08:00 96 Room Air 05/10/16 07:07 36.6 73 20 108/70 96 Room Air 05/10/16 00:53 36.6 82 18 101/66 97 Room Air 05/10/16 00:00 Room Air 05/09/16 17:30 36.8 91 16 147/85 95 Room Air 05/09/16 16:54 36.8 94 18 139/85 99 05/09/16 16:52 94 18 139/85 99 05/09/16 16:28 157/106 05/09/16 16:20 99 22 99 05/09/16 16:08 99 Room Air 05/09/16 15:58 144/101 05/09/16 15:50 85 14 95 05/09/16 15:28 150/95 05/09/16 15:20 102 13 94 05/09/16 15:15 95 16 99 05/09/16 15:10 96 17 97 05/09/16 15:05 94 17 97 05/09/16 15:00 98 22 97 05/09/16 13:53 94 05/09/16 13:04 97 23 95 05/09/16 12:58 131/81 05/09/16 12:34 87 15 97 05/09/16 12:28 160/103 05/09/16 12:04 82 16 98 05/09/16 11:59 164/77 05/09/16 11:56 122 18 97 05/09/16 11:52 168/105 05/09/16 11:26 87 15 05/09/16 11:24 90 Physical Exam General Appearance: no apparent distress Neck: no JVD Respiratory/Chest: + pertinent finding (few coarse breath sounds bilaterally. No crackles. Good aeration at the bases. No tachypnea. No hypoxia.) Cardiovascular: regular rate, rhythm Abdomen: normal bowel sounds, non tender, soft Extremities: non-tender, no pedal edema Neurologic/Psychiatric: no motor/sensory deficits, oriented x 3 Skin: warm/dry Laboratory Results Last 24 Hours Test 05/09/16 11:10 05/09/16 12:00 05/09/16 13:01 05/09/16 16:47 Venous Blood pH 7.46 Venous Blood Partial Pressure CO2 51 mmHg Venous Blood Partial Pressure O2 50 mmHg Venous Blood HCO3 35 mmol/L Venous Blood Oxygen Saturation 84.3 % Venous Blood Base Excess 10.0 mmol/L Urine Color YELLOW Urine Appearance CLEAR Urine pH 7.5 Urine Specific [place] 1.018 Urine Protein 2+ Urine Glucose (UA) 2+ Urine Ketones TRACE Urine Occult Blood NEG Urine Nitrite NEG Urine Bilirubin NEG Urine Urobilinogen NEG Urine Leukocyte Esterase NEG Urine WBC (Auto) 1-5 /hpf Urine RBC (Auto) 0-4 /hpf Urine Hyaline Casts (Auto) 5-10 /lpf Urine Epithelial Cells (Auto) 10-20 /lpf Urine Bacteria (Auto) NEG Bedside Glucose 228 mg/dl 186 mg/dl Test 05/09/16 17:15 05/09/16 19:10 05/09/16 20:38 05/10/16 06:55 Bedside Glucose 202 mg/dl 113 mg/dl Sodium Level 141 mmol/L 141 mmol/L Potassium Level 3.8 mmol/L 3.5 mmol/L Chloride Level 102 mmol/L 104 mmol/L Carbon Dioxide Level 32 mmol/L 28 mmol/L Anion Gap 7.0 mmol/L 9.0 mmol/L Blood Urea Nitrogen 19 mg/dl 16 mg/dl Creatinine 1.20 mg/dl 1.10 mg/dl Est Creatinine Clear Calc Drug Dose 81.0 ml/min 88.4 ml/min Estimated GFR () 86.5 96.1 Estimated GFR (Non- 74.7 82.9 BUN/Creatinine Ratio 16.2 14.4 Random Glucose 147 mg/dl 61 mg/dl Calcium Level 8.4 mg/dl 8.2 mg/dl Beta-Hydroxybutyric Acid 1.07 mg/dL White Blood Count 6.43 K/uL Red Blood Count 3.86 M/uL Hemoglobin 10.9 g/dL Hematocrit 33.9 % Mean Corpuscular Volume 87.8 fL Mean Corpuscular Hemoglobin 28.2 pg Mean Corpuscular Hemoglobin Concent 32.2 g/dl Platelet Count 312 K/uL Mean Platelet Volume 10.1 fL Neutrophils (%) (Auto) 60.1 % Lymphocytes (%) (Auto) 30.5 % Monocytes (%) (Auto) 7.0 % Eosinophils (%) (Auto) 1.9 % Basophils (%) (Auto) 0.3 % Neutrophils # (Auto) 3.87 K/uL Lymphocytes # (Auto) 1.96 K/uL Monocytes # (Auto) 0.45 K/uL Eosinophils # (Auto) 0.12 K/uL Basophils # (Auto) 0.02 K/uL RDW Standard Deviation 41.1 fL RDW Coefficient of Variation 12.8 % Immature Granulocyte % (Auto) 0.2 % Immature Granulocyte # (Auto) 0.01 K/uL Test 05/10/16 07:41 05/10/16 08:05 05/10/16 08:47 Bedside Glucose 67 mg/dl 60 mg/dl 236 mg/dl Assessment and Plan 40-year-old male presented to the emergency department with nausea, vomiting and hyperglycemia. History of type 1 diabetes. Unfortunately, the gentleman does not have insurance and is unable to afford his insulin. He has been intermittently taking his aunt's Novolog. The patient reports having NovoLog with him. He ran out of his Lantus. Type 1 diabetes. Admitted with hyperglycemia. Mild hypoglycemic episode this morning. No signs of DKA -Received 10 units of Lantus last night. In addition, received 2 doses of Novolin 6 units subcutaneously last night. -Pharmacy glycemic consult placed -Hold basal insulin this morning. Recommendation is to start Lantus 6 units daily. Start tomorrow. -Patient will likely need Novolin 70/30 (due to affordability) upon discharge -Pharmacy following -Insulin sliding scale: Goal Range: Low 120 mg/dL - High 160 mg/dL Correction Factor: 40 mg/dL/unit Carb ratio of 1 unit per 20 grams CHO consumed Acute bronchitis -Continue Levaquin 750 mg IV for 1 more day -If patient tolerating a diet, this will be switched to po tomorrow Nausea vomiting-possibly secondary to hyperglycemia vs viral gastroenteritis. Resolving. No diarrhea. No abdominal pain. -Advance diet today -Continue Zofran 4 mg IV every 6 hours if needed Acute renal failure secondary to dehydration in the setting of hyperglycemia- resolving with fluids -Continue IVF-->will d/c if tolerating a diet later today Acute on chronic back pain-no injuries -Ultram 50 mg 1 -Continue Voltaren gel Pulmonary nodule -Patient will need repeat chest x-ray PA and lateral in 6 months DVT prophylaxis -Ambulation -Teds, SCDs CODE STATUS -LEVEL I FULL CODE
[2016-05-10 13:58] VITALS: Ht 175.3 cm; Wt 73.8 kg
[2016-05-10] MEDS ORDERED: LEVOFLOXACIN / D5W 750 MG in PREMIXED IN D5W 150 ML IV SCH (14:00)
[2016-05-10] MEDS ORDERED: INSU70IN2 SC (14:42)
[2016-05-10] MEDS ORDERED: VLTG EXT (14:42)
--- NOTE | 2016-05-10 14:57 | Discharge Instructions ---
Discharge Instructions Admission Reason for Admission: Uncontrolled Diabetes Mellitis Discharge Discharge Diagnosis / Problem: uncontrolled diabetes, vomiting, acute renal failure Discharge Goals Goal(s): Decrease discomfort, Improve function Activity Recommendations Activity Limitations: resume your previous activity . Instructions / Follow-Up Instructions / Follow-Up You have been treated in the hospital for nausea, vomiting and high blood sugars. Your kidney function was also abnormal likely due to dehydration. It is recommended that you have a repeat BMP in 3-5 days (blood work) Stay well hydrated. Increase water intake over the next 3 days You may use the Voltaren gel to your back once daily as needed for pain. You may also use Tylenol [id number] 650 mg every 8 hours as needed for pain. Please do not exceed 4 doses in a 24-hour period PLEASE DO NOT TAKE OVER THE COUNTER IBUPROFEN, ALEVE, MOTRIN, ADVIL OR OTHER NSAIDS UNTIL YOU HAVE REPEAT BLOOD WORK. It is important to take Novolin 70/30: 6 units 30 MINUTES PRIOR TO MEALS TWICE DAILY Please check blood sugars in the morning, evening, and with meals. It is recommended that you check a blood sugar 2 hours after eating If blood sugar is greater than 300, please take an additional 2 units of Novolin 70/30 and contact your physician It is important to carry either juice or candy with you at all times in case your blood sugar drops Please follow-up with your primary care physician as soon as possible There was a small lung nodule noted on your chest xray. It is recommended that you have another chest xray in 6 months for further evaluation Return to the emergency department/call ambulance if you have any of the following symptoms: -Blood sugar less than 40 or greater than 400 -Uncontrolled vomiting -Chest pain -Shortness of breath -Severe abdominal pain -Fever greater than 103F Current Hospital Diet Patient's current hospital diet: Diabetes Type 2 Diet Discharge Diet Recommended Diet: Diabetes Type 1 Diet Pending Studies Studies pending at discharge: no Laboratory Results Hemoglobin A1c Test 05/09/16 10:50 Range/Units Estimated Average Glucose 214 mg/dl Hemoglobin A1c 9.1 H 4.5-5.6 % Medical Emergencies . Who to Call and When: Medical Emergencies: If at any time you feel your situation is an emergency, please call 911 immediately. . Non-Emergent Contact Non-Emergency issues call your: Primary Care Provider . . "Provider Documentation" section prepared by Sheri Clay. VTE Core Measure Inpt VTE Proph given/why not?: Jo Pate, [employer]
--- NOTE | 2016-05-10 15:11 | Discharge Summary ---
Discharge Summary Admission Date: May 09, 2016 at 14:47 Discharge Date: May 10, 2016 Discharge Disposition: Home Principal Diagnosis: type 1 DM Problems/Secondary Diagnoses: vomiting ARF bronchitis Consultations: pharmacy-glycemic control (Sheri Clay PA-C) Medication Reconciliation New Medications: Diclofenac Sod (Voltaren) 100 Appln/100 Gm Gel 1 APPLN EXT DAILY for 10 Days Insulin Human Isophan/Regular (Novolin 70/30) Inj 6 UNITS SC BIDM for 30 Days Discontinued Medications: Insulin Aspart (Novolog Flexpen) 100 Units/Ml Inj Unknown Dose sliding scale Insulin Glargine (Lantus) 100 Unit/Ml Inj Unknown Dose SC QPM, VIAL sliding scale Discharge Exam Patient has minimal complaints. Complaining of mild back pain. This is not new. Denies any injury. Did feel slightly weak this morning when his blood sugars were low. That has improved. He is hungry. No abdominal pain. Tolerating a diet. Denies fever or chills. No chest pain or shortness of breath. Review of Systems: Constitutional: No fever Respiratory: No shortness of breath Cardiovascular: No chest pain Abdomen: No pain Physical Exam: General Appearance: no apparent distress Neck: no JVD Respiratory/Chest: + pertinent finding (minimal coarse BS bilaterally) Cardiovascular: regular rate, rhythm Abdomen / GI: normal bowel sounds, non tender, soft Extremities: no calf tenderness, no pedal edema Neurologic/Psychiatric: no motor/sensory deficits, oriented x 3 Skin: warm/dry (Sheri Clay PA-C) Review of Systems: Constitutional: No chills, No fever Respiratory: No cough, No sputum Cardiovascular: No chest pain, No orthopnea Abdomen: No nausea, No pain, No vomiting Musculoskeletal: No joint pain, No muscle pain Genitourinary - Female: No dysuria, No urinary frequency Genitourinary - Male: No dysuria, No hematuria Psychiatric: No anhedonism, No depression symptoms Physical Exam: General Appearance: WD/WN, + mild distress Neck: supple, no JVD Respiratory/Chest: chest non-tender, lungs clear, no accessory muscle use Cardiovascular: regular rate, rhythm, no murmur Abdomen / GI: normal bowel sounds, non tender, soft Extremities: no pedal edema, normal range of motion Neurologic/Psychiatric: alert, oriented x 3 (Alexei Chase M.D.) Hospital Course 40-year-old male presented to the emergency department with nausea, vomiting and hyperglycemia. History of type 1 diabetes. Unfortunately, the gentleman does not have insurance and is unable to afford his insulin. He has been intermittently taking his aunt's Novolog. The patient reports having NovoLog with him. He ran out of his Lantus. Type 1 diabetes. Admitted with hyperglycemia. Mild hypoglycemic episode this morning. No signs of DKA -Noncompliance an issue. No insurance -Received 10 units of Lantus last night. In addition, received 2 doses of Novolin 6 units subcutaneously last night.-again hypoglycemic this am -Pharmacy glycemic consult placed: discussed at length For cost purposes, Begin Novolin 70/30: 6 u subQ BID 30 minutes prior to meals. D/C Lantus -informatics educator consulted. Discussed monitoring and insulin injection at length -BSGs stable throughout the afternoon-->pt is anxious to get back to work as he is here on business -He will need close follow up with his PCP DARIO -please refer to d/c instructions Acute bronchitis-sx minimal -Given levaquin 750 mg x 2 doses -CXR shows no consolidation, Afebrile, no hypoxia-no further tx recommended Nausea vomiting-possibly secondary to hyperglycemia vs a mild viral gastroenteritis. Resolving. No diarrhea. No abdominal pain. -Diet advanced-tolerating Acute renal failure secondary to dehydration in the setting of hyperglycemia- -Treated with IVF -resolved -f/u BMP in 3-5 days Acute on chronic back pain-no injuries -Ultram 50 mg 1 -Continue Voltaren gel Pulmonary nodule -Patient will need repeat chest x-ray PA and lateral in 6 months DVT prophylaxis -Ambulation -Teds, SCDs CODE STATUS -LEVEL I FULL CODE Total Time Spent: Greater than 30 minutes This includes examination of the patient, discharge planning, medication reconciliation, and communication with other providers. (Sheri Clay, PA-C) PA Physician Supervision Note: I interviewed and examined the patient. Discussed with Sheri HYDE and agree with findings and plan as documented in the note. Any exceptions or clarifications are listed here: None this pt presents with non compliant diabetes, reportedly using a family members insulin, presented with abdominal pain an elevated beta hydroxy butyric acid. 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 (Sheri Clay PA-C) Follow-Up PCP 1 week (Sheri Clay PA-C)
[2016-05-10 15:41] VITALS: BP 109/69; PULSE 93; TEMP 36.4; O2SAT 96
[2016-05-10] MEDS ORDERED: TRAM-10 PO (15:41)
[2016-05-10 16:34] VITALS: BP 109/69; PULSE 93; TEMP 36.4; O2SAT 96
[2016-05-10] MEDS ORDERED: INSULIN HUMAN 70% NPH/30% REGULAR SC SCH (17:00)
[2016-05-11] MEDS ORDERED: INSULIN ASPART 100 UNITS/ML 3 ML PEN SC SCH
[2016-05-11] MEDS ORDERED: INSULIN GLARGINE SOLOSTAR 100 UNITS/ML 3 ML PEN SC SCH (08:00)
== END 2016-05-10 17:20 | disposition home or self-care (01) | DRG 638 ==
LOC: ENRESERVDT → ENRESERVTM → C.EDB 10:30 → C.4E 14:47
PROVIDERS: ADMIT Hospitalist; ATTEND Hospitalist
DX: E10.65 Type 1 diabetes mellitus with hyperglycemia (principal); N17.9 Acute kidney failure, unspecified; F17.210 Nicotine dependence, cigarettes, uncomplicated; A08.4 Viral intestinal infection, unspecified; E86.0 Dehydration; J20.9 Acute bronchitis, unspecified; M54.9 Dorsalgia, unspecified